=== PATIENT | male | born 1985 | race Caucasian/White ===

== ENCOUNTER 2019-09-19 11:01 | Emergency (ER) | payer OTHER, SELFPAY ==
[2019-09-19 11:04] VITALS: BP 128/88; PULSE 73; RESP 16; TEMP 36.6; O2SAT 98; BMI 23.7
[2019-09-19 11:14] VITALS: RESP 16
--- NOTE | 2019-09-19 11:22 | ED.VIS.GI ---
History of Present Illness Chief Complaint: Abd Pain Narrative: Patient presenting for evaluation secondary to abdominal pain nausea vomiting and diarrhea. Patient reports that since last night he has had an onset of crampy diffuse abdominal pain. He reports that it is sharp and it will come and go, and is associated with having bowel movements. He reports that he will have improvement of the pain after he has a bowel movement. Patient states that he has been having diarrhea and he describes this as being mucousy with some blood mixed in. Patient also states that he has a sore on his bottom that recently ruptured and maybe has some purulent discharge. Patient tells me that he also was having some nausea and vomiting. He states that when he was having some dry heaves he potentially had a speck of blood in them. Patient denies any fevers. He denies any recent antibiotic exposures or travel, but does states that the family dog has recently been dealing with a diarrheal illness and is likewise having mucousy stools with some blood mixed in. Patient tells me that around 10 years ago he had a prior similar event and was informed that he potentially could have had inflammatory bowel disease but never really followed up until around 5 years ago when he had a normal colonoscopy. He denies any chills or unintended weight loss. Patient denies any sores in the mouth. Review of systems otherwise negative. Past Medical History - Allergies and Home Meds Allergies/Adverse Reactions: Allergies minocycline Allergy (Verified 09/19/19 11:03) Rash Primary Care Physician: Jose Dennis MD [Primary Care Provider] - Prior records reviewed: Yes Past Medical History: None Surgical History: noncontributory Lives: With Family Smoking Status: Never smoker Alcohol: None Drugs: None Review of Systems All systems negative except as indicated General: Denies: Chills, Fever, Sweats Eyes: Denies: Visual changes - bilaterally, Diplopia ENT: Denies: Rhinorrhea, Sore throat Cardiovascular: Denies: Chest pain, Palpitations Respiratory: Denies: Dyspnea, Cough, Dyspnea on exertion Gastrointestinal: Reports: Abdominal pain, Nausea, Vomiting, Diarrhea Genitourinary: Denies: Dysuria, Hematuria, Frequency Musculoskeletal: Denies: Back pain, Extremity Pain Skin: Denies: Rash, Wounds Neurological: Denies: Headache, Weakness, Numbness Physical Exam Vital Signs/Narrative: Vital Signs Temp Pulse Resp BP Pulse Ox 09/19/19 11:14 16 09/19/19 11:04 97.8 F 73 16 128/88 H 98 Inital Vital Signs reviewed: Yes General: Well nourished, Well developed, No Acute Distress Head: Normocephalic, Atraumatic Eyes: Perrl, EOMI. Negative for: Pale conjunctiva, Scleral icterus ENT: Moist mucous membranes, No rhinorrhea, - - No evidence of intraoral lesions Neck: Supple, Nontender Cardiovascular: Regular rate, Regular rhythm, No murmurs Respiratory: No distress, CTA bilaterally, Chest nontender Abdomen: Soft, Nondistended, Normal bowel sounds, Tender - Minimal epigastric no guarding or rebound Rectal: Deferred Back: Nontender, Normal Inspection Extremities: Nontender, No edema Skin: Normal color, No rash Neurological: Alert, Oriented x3, Cranial nerves II-XII grossly intact, Normal Strength, Normal Sensation Psychological: Normal affect, Normal Mood Diagnostic/Tx/Re-eval - Medical Decision Making This is a well-appearing male presenting with a diarrheal illness. He does have a sick contact in the family pet, and describes this as a mucousy diarrhea so there is a high likelihood that this is infectious in etiology given its sudden onset and sick contacts. Patient will provide us with a enteric pathogen stool sample. Patient will be treated with Zofran and Bentyl in the emergency department for symptoms. I believe that the patient warrants treatment for infectious diarrhea, he will be discharged with a course of Cipro. I informed the patient that he needs to follow-up with primary care to ensure resolution of this as this still could potentially be a presentation of an inflammatory bowel disease, so he needs to ensure that there is resolution. Patient understands signs and symptoms which to return. He was educated on conservative management measures such as hydration. Patient was discharged in stable condition. ED Disposition - Plan for ED Patient: Disposition: Home or Assisted Living Diagnosis: Infectious colitis Instructions: ED Diarrhea Bacterial Prescriptions: Dicyclomine HCl [Bentyl] 20 mg PO TIDAC #20 cap Prescription Printed Ciprofloxacin [Cipro] 500 mg PO BID #14 tab Prescription Printed Referrals: Jose Dennis MD [Primary Care Provider] - 3-5 Days
[2019-09-19] MEDS: Ciprofloxacin 250 MG Tablet 500 MG PO (11:30)
[2019-09-19] MEDS: Dicyclomine 10 MG Capsule 20 MG PO (11:30)
[2019-09-19] MEDS: Ondansetron ODT 4 MG Tablet PO (11:30)
[2019-09-19 11:34] VITALS: RESP 16
--- NOTE | 2019-09-19 11:35 | ED.RN ---
REVIEWED D/C INSTRUCTIONS, FOLLOW UP CARE, PRESCRIPTIONS, AND S/S THAT WOULD WARRANT A RETURN TO THE ED WITH PT. PT VERBALIZED AN UNDERSTANDING AND DENIES FURTHER QUESTIONS FOR THIS RN. PT SKIN P/W/D, RESP EVEN AND UNLABORED, PT A&O X 3, NO DISTRESS NOTED.
== END 2019-09-19 11:55 | disposition home or self-care (01) ==
LOC: ED 11:47
PROVIDERS: Emergency Provider Emergency Medicine; PCP Internal Medicine
DX: A09 Infectious gastroenteritis and colitis, unspecified (principal)
CPT/HCPCS: 87506; 99283